=== PATIENT | male | born 1975 | race Caucasian/White ===

== ENCOUNTER 2020-04-18 09:09 | Emergency (ER) | payer BC ==
--- NOTE | 2020-04-18 11:23 | RAD REPORT ---
EXAM DESCRIPTION: RAD - Chest Pa And Lat (2 Views) - 04/18/2020 11:17 am CLINICAL HISTORY: COUGH Chest pain. COMPARISON: No comparisons FINDINGS: The lungs are clear. The heart is normal in size. No displaced fractures. Thoracolumbar fishman rdware is present. Small hardware plate is present cervical spine. IMPRESSION: No acute or concerning finding suspected.
[2020-04-18] MEDS ORDERED: dexAMETHasone 10 MG/ML VIAL ONE (11:53)
[2020-04-18 12:42] LABS: SARS-COV-2 RT PCR NEGATIVE (NEGATIVE)
--- NOTE | 2020-04-18 13:03 | EDPHYS ---
Physician Documentation [facility] Name: Erik Lei Age: 45 yrs Sex: Male : 1975 Arrival Date: 04/18/2020 Time: 09:13 Bed 24 Private MD: ED Physician Kain Tate HPI: 04/18 13:00 This 45 yrs old Male presents to ER via Ambulatory with complaints of Cough, jmm Sneezing. 13:00 Onset: The symptoms/episode began/occurred gradually, 1 day(s) ago. Modifying factors: jmm The symptoms are alleviated by nothing, the symptoms are aggravated by nothing. Associated signs and symptoms: Pertinent positives: rhinorrhea, Pertinent negatives: fever, sore throat. This is a 45 year old male with no chronic medical conditions that presents ot the ED with complaints of cough, congestion, body aches beginning last night. Patient states his was recently diagnosed with covid. . Historical: - Allergies: 09:19 PENICILLINS; sv - PMHx: 09:19 None; sv - PSHx: 09:19 Back; left wrist; neck; sv - Immunization history:: Flu vaccine is up to date. - Social history:: Smoking status: Patient denies any tobacco usage or history of. ROS: 13:00 Constitutional: Positive for body aches. jmm 13:00 Respiratory: Positive for cough. 13:00 All other systems are negative. Exam: 13:00 Constitutional: This is a well developed, well nourished patient who is awake, alert, jmm and in no acute distress. Head/Face: atraumatic. Eyes: EOMI, no conjunctival erythema appreciated ENT: Moist Mucus Membranes Neck: Trachea midline, Supple Chest/axilla: Normal chest wall appearance and motion. Cardiovascular: Regular rate and rhythm. No edema appreciated Respiratory: Normal respirations, no respiratory distress appreciated Abdomen/GI: Non distended, soft Back: Normal ROM Skin: General appearance color normal MS/ Extremity: Moves all extremities, no obvious deformities appreciated, no edema noted to the lower extremities Neuro: Awake and alert, normal gait Psych: Behavior is normal, Mood is normal, Patient is cooperative and pleasant Vital Signs: 09:19 BP 150 / 101; Pulse 72; Resp 18; Temp 97.9; Pulse Ox 99% ; Weight 88.9 kg; Height 5 ft. sv 9 in. (175.26 cm); 11:45 BP 150 / 106; Pulse 70; Resp 17; ll1 13:24 BP 148 / 103; Pulse 72; Resp 16; Pulse Ox 100% on R/A; vg1 09:19 Body Mass Index 28.94 (88.90 kg, 175.26 cm) sv MDM: 10:22 Patient medically screened. [facility] 13:01 Data reviewed: vital signs, nurses notes. Counseling: I had a detailed discussion with lucy the patient and/or guardian regarding: the historical points, exam findings, and any diagnostic results supporting the discharge/admit diagnosis, lab results, radiology results, the need for outpatient follow up, to return to the emergency department if symptoms worsen or persist or if there are any questions or concerns that arise at home. ED course: Patient is alert and non toxic in appearance in the ED. HPI/PE findings leans towards viral illness. Patient is given strict return precautions. Patient understood and agrees with the plan of care. . 04/18 09:31 Order name: Chest Pa And Lat (2 Views) XRAY; Complete Time: 11:24 04/18 12:42 Order name: COVID-19/FLU A+B; Complete Time: 12:46 EDMS Administered Medications: 11:40 Drug: Decadron 10 mg Route: IM; Site: right gluteus; ll1 13:26 Follow up: Response: No adverse reaction vg1 Disposition: 15:12 Co-signature as Attending Physician, Kain Tate MD I agree with the assessment and kdr plan of care. Disposition: 04/18/20 13:03 Discharged to Home. Impression: Acute upper respiratory infection, unspecified. - Condition is Stable. - Discharge Instructions: Upper Respiratory Infection, Adult. - Prescriptions for Albuterol Sulfate 90 mcg/actuation - inhale 1-2 puff by INHALATION route every 4-6 hours; 1 Inhaler. - Medication Reconciliation Form, Thank You Letter, Antibiotic Education, Prescription Opioid Use form. - Follow up: Private Physician; When: 2 - 3 days; Reason: Recheck today's complaints, Continuance of care, Re-evaluation by your physician. Signatures: Dispatcher [employer] EDMS Megan Hinton RN RN sv Rittger, Kevin, MD MD kdr Mickail, Joel, PA PA jmm Noel, Renetta, RN RN vg1 Rocio Leal, RN RN ll1 Corrections: (The following items were deleted from the chart) 11:58 10:24 CORONAVIRUS+ ordered. EDMS EDMS 13:25 13:03 04/18/2020 13:03 Discharged to Home. Impression: Acute upper respiratory vg1 infection, unspecified. Condition is Stable. Forms are Medication Reconciliation Form, Thank You Letter, Antibiotic Education, Prescription Opioid Use. Follow up: Private Physician; When: 2 - 3 days; Reason: Recheck today's complaints, Continuance of care, Re-evaluation by your physician. lucy
--- NOTE | 2020-04-18 13:03 | ER ---
Nurse's Notes [facility] Name: Erik Lei Age: 45 yrs Sex: Male : 1975 Arrival Date: 04/18/2020 Time: 09:13 Bed 24 Private MD: Diagnosis: Acute upper respiratory infection, unspecified Presentation: 04/18 09:17 Chief complaint: Patient states: productive cough, sneezing, left back pain, chest sv tightness, head tightness started last night. No meds taken OTC. Coronavirus screen: Client denies travel out of the [place] in the last 14 days. Client presents with at least one sign or symptom that may indicate coronavirus-19. Standard/surgical mask placed on the client. Provider contacted for isolation considerations. Was around his sister on Thursday and she came back COVID positive. Ebola Screen: No symptoms or risks identified at this time. Onset: The symptoms/episode began/occurred 1 day(s) ago. Anaphylaxis evaluation, no signs or symptoms of anaphylaxis were noted. Risk Assessment: Do you want to hurt yourself or someone else? Patient reports no desire to harm self or others. Onset of symptoms was April 16, 2020. 09:17 Method Of Arrival: Ambulatory sv 09:17 Acuity: NERI 3 sv 09:19 Initial Sepsis Screen: Does the patient meet any 2 criteria? No. Patient's initial sv sepsis screen is negative. Does the patient have a suspected source of infection? No. Patient's initial sepsis screen is negative. Triage Assessment: 09:21 General: Appears in no apparent distress. uncomfortable, Behavior is calm, cooperative, sv appropriate for age. Neuro: Level of Consciousness is awake, alert, obeys commands, Oriented to person, place, time, situation, Gait is steady. Respiratory: Respiratory effort is even, unlabored. Historical: - Allergies: 09:19 PENICILLINS; sv - PMHx: 09:19 None; sv - PSHx: 09:19 Back; left wrist; neck; sv - Immunization history:: Flu vaccine is up to date. - Social history:: Smoking status: Patient denies any tobacco usage or history of. Screenin:04 Abuse screen: Denies threats or abuse. Nutritional screening: No deficits noted. ll1 Tuberculosis screening: No symptoms or risk factors identified. Fall Risk Total Machado Fall Scale indicates No Risk (0-24 pts). Assessment: 09:31 Reassessment: Received VO from Dr Tate for xray. sv 10:00 Reassessment: No changes from previously documented assessment. Patient and/or family ll1 updated on plan of care and expected duration. Pain level reassessed. 11:00 Reassessment: No changes from previously documented assessment. Patient and/or family ll1 updated on plan of care and expected duration. Pain level reassessed. Patient is alert, oriented x 3, equal unlabored respirations, skin warm/dry/pink. 12:00 Reassessment: No changes from previously documented assessment. Patient and/or family ll1 updated on plan of care and expected duration. Pain level reassessed. Patient is alert, oriented x 3, equal unlabored respirations, skin warm/dry/pink. 12:11 Pain: Complains of pain in back Quality of pain is described as aching. Neuro: Level of ll1 Consciousness is awake, alert, obeys commands, Oriented to person, place, time, situation, Appropriate for age Activity Director are equal bilaterally Moves all extremities. Full function Gait is steady, Speech is normal, Facial symmetry appears normal, Reports headache. Respiratory: Reports cough that is Airway is patent Trachea midline Respiratory effort is even, unlabored, Respiratory pattern is regular, symmetrical, Breath sounds are clear bilaterally. Musculoskeletal: Circulation, motion, and sensation intact. Capillary refill < 3 seconds, Range of motion: intact in all extremities, Reports pain in back. 12:16 Reassessment: Patient appears in no apparent distress at this time. Patient and/or vg1 family updated on plan of care and expected duration. Pain level reassessed. Patient is alert, oriented x 3, equal unlabored respirations, skin warm/dry/pink. Patient denies pain at this time. Vital Signs: 09:19 BP 150 / 101; Pulse 72; Resp 18; Temp 97.9; Pulse Ox 99% ; Weight 88.9 kg; Height 5 ft. sv 9 in. (175.26 cm); 11:45 BP 150 / 106; Pulse 70; Resp 17; ll1 13:24 BP 148 / 103; Pulse 72; Resp 16; Pulse Ox 100% on R/A; vg1 09:19 Body Mass Index 28.94 (88.90 kg, 175.26 cm) sv ED Course: 09:13 Patient arrived in ED. ds1 09:17 Arm band placed on. sv 09:18 Triage completed. sv 09:47 [facility]ado [facility] 09:47 Kain Tate MD is Attending Physician. [facility] 10:03 Rocio Leal, GLO is Primary Nurse. ll1 10:04 Patient placed in an exam room, on a stretcher. ll1 10:05 Patient has correct armband on for positive identification. Bed in low position. Call ll1 light in reach. Side rails up X 1. Cardiac monitoring not applicable on this patient. 10:38 X-ray completed. Patient tolerated procedure well. mh1 11:17 Chest Pa And Lat (2 Views) XRAY In Process Unspecified. EDMS 12:16 Primary Nurse role handed off by Rocio Leal, GLO vg1 12:16 Renetta Cohen RN is Primary Nurse. vg1 13:25 No provider procedures requiring assistance completed. Patient did not have IV access vg1 during this emergency room visit. Administered Medications: 11:40 Drug: Decadron 10 mg Route: IM; Site: right gluteus; ll1 13:26 Follow up: Response: No adverse reaction vg1 Outcome: 13:03 Discharge ordered by MD. [facility] 13:25 Discharged to home ambulatory. vg1 13:25 Condition: stable 13:25 Discharge instructions given to patient, Instructed on discharge instructions, follow up and referral plans. medication usage, Demonstrated understanding of instructions, follow-up care, medications, Prescriptions given X 1. 13:25 Patient left the ED. vg1 Signatures: Dispatcher [employer] EDMS Megan Hinton RN RN Aureliano Guardado PA PA jmm Harvey, Martha 1 Rhonda Rodriguez ds1 Renetta Cohen RN RN vg1 Rocio Leal, GLO RN ll1 Corrections: (The following items were deleted from the chart) 09:22 09:19 Resp 18bpm; Pulse Ox 99%; Temp 97.9F; 88.9 kg; Height 5 ft. 9 in.; BMI: 28.9; sv sv 12:11 12:09 Respiratory: Airway is patent Trachea midline Respiratory effort is even, ll1 unlabored, Respiratory pattern is regular, symmetrical, Breath sounds are clear bilaterally. ll1 12:11 12:09 Pain: Complains of pain in RLQ Quality of pain is described as aching, 1 1 12: 12:09 Neuro: No deficits noted. 1 1 12: 12:09 Cardiovascular: No deficits noted. ll1 1 12: 12:09 GI: Abdomen is flat, Bowel sounds present X 4 quads. Abd is soft and non tender X ll1 4 quads. 1 12:11 12:09 EENT: Throat is reddened Reports pain when swallowing [place] [id number] 12:11 10:15 Inserted saline lock: 22 gauge in left antecubital area, using aseptic technique. ll1 Blood collected. 1
[2020-04-18 13:30] VITALS: TEMP 97.9
[2020-04-18 13:32] VITALS: BP 148/103; O2SAT 100
== END 2020-04-18 13:25 | disposition home or self-care (01) ==
LOC: ER 09:09
DX: J06.9 Acute upper respiratory infection, unspecified (principal); Z20.822 Contact with and (suspected) exposure to COVID-19; Z88.0 Allergy status to penicillin
CPT/HCPCS: 0240U; 71046; 96372; 99283; J1100

== ENCOUNTER 2020-04-23 15:37 | Emergency (ER) | payer BC ==
--- NOTE | 2020-04-23 17:16 | RAD REPORT ---
EXAM DESCRIPTION: US - Abdomen Exam Limited - 04/23/2020 4:55 pm CLINICAL HISTORY: ABD PAIN COMPARISON: No comparisons FINDINGS: Gallbladder is contracted. Patient was not fasting for the examination. No gallstones or m easurable quantity of sludge could be identified. No wall thickening or pericholecystic fluid. No common duct stone or biliary tree dilatation identified. IMPRESSION: Contracted gallbladder in a non fasting patient. No gross evidence for stones or sludge.
--- NOTE | 2020-04-23 19:56 | ER ---
Nurse's Notes [facility] Name: Erik Lei Age: 45 yrs Sex: Male : 1975 Arrival Date: 04/23/2020 Time: 15:40 Bed External Waiting Private MD: Diagnosis: Presentation: 04/23 15:46 Chief complaint: Patient states: was sent by his PCP in [place], [place] for elevated LFT sv and WBCs. Was seen here a few days ago for COVID like symptoms and was negative. c/o lower abd pain and low back pain. Coronavirus screen: Client denies travel out of the [place] in the last 14 days. At this time, the client does not indicate any symptoms associated with coronavirus-19. Ebola Screen: No symptoms or risks identified at this time. Risk Assessment: Do you want to hurt yourself or someone else? Patient reports no desire to harm self or others. Onset of symptoms was April 23, 2020. 15:46 Method Of Arrival: Ambulatory sv 15:46 Acuity: NERI 3 sv 15:47 Initial Sepsis Screen: Does the patient meet any 2 criteria? No. Patient's initial sv sepsis screen is negative. Does the patient have a suspected source of infection? No. Patient's initial sepsis screen is negative. Triage Assessment: 15:49 General: Appears in no apparent distress. comfortable, Behavior is calm, cooperative, sv appropriate for age. Pain: Complains of pain in lower abdomen and low back. Neuro: Level of Consciousness is awake, alert, obeys commands, Gait is steady. Respiratory: Respiratory effort is even, unlabored. Historical: - Allergies: 15:47 PENICILLINS; sv - PSHx: 15:47 Back; left wrist; neck; sv - Immunization history:: Adult Immunizations up to date. - Social history:: Smoking status: Patient denies any tobacco usage or history of. Patient/guardian denies using alcohol, street drugs. Assessment: 16:31 Reassessment: Received VO from Dr Neal for US abd. Vital Signs: 15:47 BP 138 / 87; Pulse 80; Resp 16; Temp 98.7(TE); Pulse Ox 100% on R/A; Weight 88.9 kg; sv Height 5 ft. 9 in. (175.26 cm); Pain 6/10; 15:47 Body Mass Index 28.94 (88.90 kg, 175.26 cm) sv ED Course: 15:40 Patient arrived in ED. mr 15:47 Triage completed. sv 15:47 Arm band placed on. sv 16:55 US Abdomen Limited In Process Unspecified. EDMS 16:55 Ultrasound completed. Patient tolerated well. Patient taken to [facility], Patient moved is back from ultrasound. Administered Medications: No medications were administered Outcome: 19:54 Eloped from waiting room, post triage evaluation and consult. pt reports will be going sg home for follow up tomorrow 19:54 Condition: stable 19:54 Instructed on follow up and referral plans. 19:55 Patient left the ED. sg Signatures: Dispatcher [employer] Megan Felder RN RN Indra Adams RN RN Gabrielle Caba mr JsTammie RN RN Stefanie Briceno is Corrections: (The following items were deleted from the chart) 15:49 15:47 Pulse 80bpm; Resp 16bpm; Pulse Ox 100%; Temp 98.7F; sv sv 15:50 15:47 BP 138 / 87; Pulse 80bpm; Resp 16bpm; Pulse Ox 100%; Temp 98.7F; sv sv
[2020-04-23 20:11] VITALS: BP 138/87; TEMP 98.7; O2SAT 100
== END 2020-04-23 19:55 | disposition left against medical advice (07) ==
LOC: ER 15:37
DX: R10.30 Lower abdominal pain, unspecified (principal); M54.5 Low back pain; Z53.21 Procedure and treatment not carried out due to patient leaving prior to being seen by health care provider
CPT/HCPCS: 76705; 99284